=== PATIENT | female | born 1955 | race Caucasian/White ===

== ENCOUNTER 2021-08-29 08:48 | Emergency (ER) | payer SELFPAY ==
[~2021-08-29] VITALS: Ht 152.4 cm; Wt 102.1 kg
--- NOTE | 2021-08-29 08:59 | NUR ---
DR DAS AT THE BEDSIDE
--- NOTE | 2021-08-29 09:02 | NUR ---
The patient paitnet BIBS for c/o left arm Numbness especially on 4/5 finger - forearm Started 430an Now Right hands starting to. +Neck pain". In room air and denies SOB. Respiration regular and unlabored. Will continue to monitor the patient.
[2021-08-29] MEDS ORDERED: IBUP-1955 PO (09:19)
--- NOTE | 2021-08-29 09:36 | NUR ---
Patient discharged to home in stable condition. Written and verbal after care instructions given. Patient verbalizes understanding of instruction.
[2021-08-29 09:37] VITALS: BP 165/94
== END 2021-08-29 09:37 | disposition home or self-care (01) ==
LOC: ER 08:53
DX: G56.22 Lesion of ulnar nerve, left upper limb (principal); M54.2 Cervicalgia